=== PATIENT | male | born 1970 | race Asian ===

== ENCOUNTER 2021-07-20 20:36 | Emergency (ER) | payer OTHER, SELFPAY ==
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
[2021-07-20 20:44] VITALS: BP 169/78; PULSE 73; RESP 18; TEMP 37; O2SAT 97; BMI 39.9
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
[2021-07-20 22:11] VITALS: BP 152/86; PULSE 67; RESP 14; TEMP 37; O2SAT 98
--- NOTE | 2021-07-20 22:44 | PC.NURSE ---
throughout ed time, pt was reorientated to keep collar on. Pt is now self removing collar. pt reeducated to keep collar on.
--- NOTE | 2021-07-21 00:26 | PC.NURSE ---
RIGHT ELBOW HAS MODERATE AREA OF [address] [place]. AREA CLEANED WITH HYDROGEN PEROXIDE AND WATER MIXTURE. ANTIBIOTIC OINTMENT PLACED OVER OPEN SKIN, COVERED WITH TELFA AND WRAPPED WITH TARAN.
[2021-07-21] MEDS: traMADoL HCL 50 MG TABLET PO (00:43)
[2021-07-21 02:19] VITALS: BP 149/85; PULSE 70; RESP 16; O2SAT 96
== END 2021-07-21 02:21 | disposition home or self-care (01) ==
PROVIDERS: Emergency Provider Emergency Medicine; PCP Internal Medicine
DX: S50.311A Abrasion of right elbow, initial encounter (principal); T14.8XXA Other injury of unspecified body region, initial encounter; V03.90XA Pedestrian on foot injured in collision with car, pick-up truck or van, unspecified whether traffic or nontraffic accident, initial encounter; Y93.9 Activity, unspecified; Y92.9 Unspecified place or not applicable; Y99.9 Unspecified external cause status
CPT/HCPCS: 70450; 72072; 72125; 73100; 99284

== ENCOUNTER 2022-04-19 20:35 | Emergency (ER) | payer OTHER, SELFPAY ==
--- NOTE | 2022-04-19 20:38 | ECG_ITS ---
Test Reason : dizness Blood Pressure : / mmHG Vent. Rate : 075 BPM Atrial Rate : 075 BPM P-R Int : 146 ms QRS Dur : 092 ms QT Int : 352 ms P-R-T Axes : 013 -16 002 degrees QTc Int : 393 ms Normal sinus rhythm Minimal voltage criteria for LVH, may be normal variant ( R in aVL ) Borderline ECG No previous ECGs available Referred By: Generic ED Physician Electronically Signed By:Keegan House
[2022-04-19 20:40] VITALS: BP 124/59; PULSE 78; RESP 18; TEMP 37; O2SAT 97; BMI 36.0
--- NOTE | 2022-04-19 20:51 | PC.NURSE ---
Pt refusing blood work at this time. Attributing dizziness to cleaning.
== END 2022-04-19 21:17 | disposition left against medical advice (07) ==
PROVIDERS: Emergency Provider Emergency Medicine; PCP Internal Medicine
DX: R42 Dizziness and giddiness (principal); E78.5 Hyperlipidemia, unspecified
CPT/HCPCS: 93005; 99282; 99283

== ENCOUNTER 2022-05-06 08:11 | Outpatient (REF) | payer OTHER, SELFPAY ==
--- NOTE | ~2022-05-06 | XR_ITS ---
EXAMINATION: XR SHOULDER, RIGHT CLINICAL INFORMATION: Pain COMPARISON: None TECHNIQUE: AP external rotation, Grashey, scapular Y, and axillary views of the right shoulder. FINDINGS: There is mild loss of right AC joint with periarticular spurring. No acute fracture or dislocation seen. The soft tissues are normal. XR/XR shoulder RT min 2V IMPRESSION: Mild degenerative changes right AC joint.
== END 2022-05-06 08:12 | disposition home or self-care (01) ==
LOC: HO.HOSX 08:11
PROVIDERS: Visit Provider Physician Assistant
DX: M54.12 Radiculopathy, cervical region (principal)
CPT/HCPCS: 73030; 99202

== ENCOUNTER → 2022-06-19 10:53 | Outpatient (BNVA) | payer OTHER, SELFPAY | PROVIDERS: PCP Internal Medicine; Visit Provider Orthopaedic Surgery | DX: M77.8 Other enthesopathies, not elsewhere classified (principal); R20.0 Anesthesia of skin; R20.2 Paresthesia of skin | CPT/HCPCS: 20550; 99202; J1100 ==

== ENCOUNTER → 2022-07-15 08:58 | Outpatient (BNVA) | payer OTHER, SELFPAY | PROVIDERS: PCP Internal Medicine; Visit Provider Internal Medicine | DX: M47.812 Spondylosis without myelopathy or radiculopathy, cervical region (principal) | CPT/HCPCS: 99202 ==

== ENCOUNTER 2022-12-31 01:47 | Emergency (ER) | payer OTHER, SELFPAY ==
--- NOTE | 2022-12-31 | ECG_ITS ---
Test Reason : SHORTNESS OF BREATH Blood Pressure : / mmHG Vent. Rate : 093 BPM Atrial Rate : 093 BPM P-R Int : 158 ms QRS Dur : 092 ms QT Int : 348 ms P-R-T Axes : 038 -13 028 degrees QTc Int : 432 ms Normal sinus rhythm Minimal voltage criteria for LVH, may be normal variant ( R in aVL ) Borderline ECG When compared with ECG of 19-APR-2022 20:36, No significant change was found Referred By: Generic ED Physician Electronically Signed By:VIKRAM JARA MD
[2022-12-31 01:54] VITALS: BMI 30.1
[2022-12-31 02:24] LABS: Basophils Absolute Auto 0.1 X10*3/uL (0.0-0.2); Basophils Percent Auto 0.6 % (0-2); Eosinophils Absolute Auto 0.9 X10*3/uL (0.0-0.4); Eosinophils Percent Auto 8.3 % (0-4); Hematocrit 40.3 % (42.0-52.0); Hemoglobin 13.3 g/dl (14.0-18.0); Imm Gran Abs Auto 0.09 X10*3/uL (0.00-0.03); Imm Gran Pct Auto 0.8 % (0.0-0.4); Lymphocytes Absolute Auto 3.2 X10*3/uL (1.2-4.9); Lymphocytes Percent Auto 29.7 % (20-40); MANUAL DIFF FLAG NO; Mean Corpuscular Hemoglobin 28.2 pg (27.0-33.0); Mean Corpuscular Volume 85.4 fL (80.0-98.0); Mean Platelet Volume 10.7 fL (9.4-12.4); Monocytes Absolute Auto 0.7 X10*3/uL (0.1-1.2); Monocytes Percent Auto 6.7 % (2-11); Neutrophils Absolute Auto 5.7 x10*3/uL (2.0-8.3); Neutrophils Percent Auto 53.9 % (45-73); Platelet Count 221 X10*3/uL (160-400); Red Blood Count 4.72 X10*6/uL (4.60-5.80); Red Cell Distribution Width 12.6 % (11.0-16.0); White Blood Count 10.6 X10*3/uL (4.8-10.8)
[2022-12-31 02:35] VITALS: BP 128/68; PULSE 79; RESP 16; O2SAT 95
[2022-12-31 02:44] LABS: Alanine Aminotransferase 25 U/L (0-40); Albumin Level 4.1 g/dL (3.5-5.0); Alkaline Phosphatase 103 U/L (39-117); Anion Gap 16 (12-20); Aspartate Amino Transferase 19 U/L (5-37); Bilirubin Total 0.2 mg/dL (0.0-1.0); Blood Urea Nitrogen 17 mg/dL (9-16); Calcium 9.2 mg/dL (8.4-10.2); Carbon Dioxide 23 mmol/L (22-29); Chloride 105 mmol/L (96-108); Creatinine Clr Calc Pharmacy 97.8; Estimated Glomerular Filt Rate > 60; Glucose Random 214 mg/dL (60-115); Potassium 3.7 mmol/L (3.3-5.1); Sodium 140 mmol/L (135-145); Total Protein 6.9 g/dL (6.5-8.0)
[2022-12-31 02:52] LABS: Troponin-I High Sensitivity < 3.5 ng/L (<3.5-35.0)
[2022-12-31 05:18] VITALS: BP 130/61; PULSE 81; RESP 20; O2SAT 97
--- NOTE | 2022-12-31 07:03 | ED_ITS ---
HPI - SOB/Dyspnea General Chief Complaint: Dyspnea Stated Complaint: SOB,99% RA,FULL SENTENCES PER EMS Time Seen by Provider: 12/31/22 06:24 Source: patient Mode of arrival: EMS Limitations: no limitations History of Present Illness HPI Narrative: 52-year-old male who presented to the emergency department for evaluation of shortness of breath. The patient states that he was with a friend and he ate a marijuana gummy. The patient states he did not know that the gummy had marijuana in it. He states that he ate the marijuana edible around 23:00 hours. He then went home he states that he is having difficulty falling asleep. He states he felt very anxious. States that if he fell asleep he was afraid he was not going to wake up again. Patient started to feel short of breath therefore he called an ambulance and was brought to emergency department for evaluation. Patient states several days ago he did have a episode of shaking chills and rhinorrhea. Currently denies chest pain, shortness of breath, nausea, vomiting, diarrhea, weakness. Related Data Home Medications Medication Instructions Recorded Confirmed apremilast 30 mg tablet (Otezla) 30 mg PO BID 06/19/22 07/15/22 loratadine 10 mg tablet 10 mg PO DAILY PRN 07/15/22 07/15/22 (Allerclear) Allergies Allergy/AdvReac Type Severity Reaction Status Date / Time No Known Allergies Allergy Verified 07/15/22 09:06 Review of Systems Review of Systems: Yes all other systems are reviewed and are negative [facility] Past Medical History [facility] Narrative: Past medical history: Hyperlipidemia. Social history: He denies tobacco use. Occasionally drinks alcohol. He states that he does not use drugs any never uses marijuana. Medical History (Updated 12/31/22 @ 07:17 by Lei Barrera MD) High cholesterol Psoriasis Surgical History No pertinent past surgical history Social History Social History Alcohol intake: current Alcohol intake frequency: a few times a week Smoked in Last 30 Days: No Use of substances other than those prescribed or required for medical reasons: No Advance Directives: No Advance Directives Information Provided: Yes Physical Exam Vital Signs: Vital Signs: Last Vital Signs Pulse 81 12/31/22 05:18 Resp 20 12/31/22 05:18 BP 130/61 12/31/22 05:18 Pulse Ox 97 12/31/22 05:18 O2 Del Method 12/31/22 05:18 BMI result Body Mass Index 30.1 Const: General: cooperative and no acute distress Orientation/consciousness: oriented to person and oriented to place Limitations: no limitations HEENT: Head: Yes normal to inspection, Yes normocephalic and Yes atraumatic Ears: external ears normal General nose exam: Normal external nose present Face and sinus: Yes normal facial exam Mouth: Normal oral and palatal mucosa present Throat: Yes posterior oropharynx normal Eyes: General: appearance normal, both eyes and all related structures Pupils: Equal, round and reactive pupils present Neck: Neck: Yes normal visual inspection, Yes no lymphadenopathy, Yes trachea midline and Yes supple Chest: Chest palpation & inspection: normal inspection of the chest and normal palpation of entire chest wall Resp: Effort & Inspection: normal respiratory effort and able to speak in complete sentences Auscultation: clear to auscultation bilaterally Cardio: Rate: regular rate Rhythm: regular rhythm Heart sounds: S1 normal heart sound present, S2 normal heart sound present and no murmurs GI: Inspection: Yes normal to inspection Palpation (GI): Soft to palpation, nontender and no guarding Auscultation: normal bowel sounds : General: Yes no CVA tenderness Back/Spine/Pelvis: Back: no CVA tenderness Skin: General skin exam: no rashes or lesions noted Neuro: General: oriented to person and oriented to place Cranial nerves: Yes CN's II-XII intact bilaterally and Yes Equal, round and reactive pupils present Cognition (Neuro): normal cognition Motor exam (neuro): 5/5 motor strength present throughout Extrem: General: Yes normal to inspection Psych: Appearance: grossly normal Speech and movement: Normal speech and mo vement present Affect: normal affect Attitude: cooperative Thought process: Normal thought process present Thought content: Normal thought content present Medical Decision Making Medical Decision Making MDM Narrative: 52-year-old male who presents emergency department for evaluation of shortness of breath and paranoid ideation which occurred after he ate an edible marijuana gummy. The patient's vital signs were normal. Patient's physical examination was unremarkable. At the time my evaluation the patient is feeling back to normal and states that he is just feeling tired at this time. Patient had a laboratory evaluation that included a CBC, CMP and troponin. Patient's glucose was elevated at 214. The patient's high sensitive troponin I was below detectable limits. Patient's 12 EKG was unremarkable. The patient was discharged home. Differential Diagnosis Differential diagnosis includes but is not limited to myocardial infarction, pn eumonia, congestive heart failure, anemia, THC induced paranoia. Lab Data [facility] Lab Attestation statement: I reviewed the patient's lab results. Please see [facility] for discussion 12/31/22 02:19 12/31/22 02:19 Labs: Lab Results 12/31/22 12/31/22 12/31/22 Range/Units 02:19 02:19 02:19 WBC 10.6 (4.8-10.8) X10*3/uL RBC 4.72 (4.60-5.80) X10*6/uL Hgb 13.3 L (14.0-18.0) g/dl Hct 40.3 L (42.0-52.0) % MCV 85.4 (80.0-98.0) fL MCH 28.2 (27.0-33.0) pg MCHC 33.0 (31.0-36.0) g/dl RDW 12.6 (11.0-16.0) % Plt Count 221 (160-400) X10*3/uL MPV 10.7 (9.4-12.4) fL Immature Gran % (Auto) 0.8 H (0.0-0.4) % Neut % (Auto) 53.9 (45-73) % Lymph % (Auto) 29.7 (20-40) % [place] % (Auto) 6.7 (2-11) % Eos % (Auto) 8.3 H (0-4) % Baso % (Auto) 0.6 (0-2) % Lymph # (Auto) 3.2 (1.2-4.9) X10*3/uL [place] # (Auto) 0.7 (0.1-1.2) X10*3/uL Eos # (Auto) 0.9 H (0.0-0.4) X10*3/uL Baso # (Auto) 0.1 (0.0-0.2) X10*3/uL Abs Immat Gran (auto) 0.09 H (0.00-0.03) X10*3/uL Absolute Neuts (auto) 5.7 (2.0-8.3) x10*3/uL Absolute Nucleated RBC 0.000 (0.0-0.012) X10*3/uL Nucleated RBC % (auto) 0.0 (0.0-0.2) /100WBC Sodium 140 (135-145) mmol/L Potassium 3.7 (3.3-5.1) mmol/L Chloride 105 (96-108) mmol/L Carbon Dioxide 23 (22-29) mmol/L Anion Gap 16 (12-20) BUN 17 H (9-16) mg/dL Creatinine 1.00 (0.5-1.4) mg/dL Estim Creat Clear Calc 97.8 Estimated GFR > 60 Random Glucose 214 H (60-115) mg/dL Calcium 9.2 (8.4-10.2) mg/dL Total Bilirubin 0.2 (0.0-1.0) mg/dL AST 19 (5-37) U/L ALT 25 (0-40) U/L Alkaline Phosphatase 103 (39-117) U/L Troponin I High Sens < 3.5 (<3.5-35.0) ng/L Total Protein 6.9 (6.5-8.0) g/dL Albumin 4.1 (3.5-5.0) g/dL Independent Interpretation I performed an independent interpretation of an: EKG Interpretation: My independent interpretation of the patient's 12 EKG done at 02:10 hours is as follows: Normal sinus rhythm with a rate of 93, normal DC interval, QRS duration QTC interval, no ST segment elevation, no ST segment depression this is a normal EKG. Discharge Plan Discharge Clinical Impression: Panic attack Adverse effect of cannabis Qualifiers: Encounter type: initial encounter Qualified Code(s): T40.715A - Adverse effect of cannabis, initial encounter Patient Disposition: Home, Self-Care Instructions: Panic Attack (ED) Additional Instructions: Your blood work was normal. Your 12 EKG was normal. Your symptoms were caused by the marijuana edible that you ingested. Marijuana can sometimes make you paranoid and give you a panic attack. Follow-up with your doctor in 2 days. Please return to the emergency department if your symptoms get worse or if you develop any symptoms that are concerning to you. Prescriptions: No Action Otezla 30 mg tablet 30 mg PO BID loratadine [Allerclear] 10 mg tablet 10 mg PO DAILY PRN
[2022-12-31 07:42] VITALS: BP 123/66; PULSE 85; RESP 18; TEMP 36.7
== END 2022-12-31 07:48 | disposition home or self-care (01) ==
PROVIDERS: Emergency Provider Emergency Medicine Emergency Medical Services; PCP Internal Medicine
DX: F41.0 Panic disorder [episodic paroxysmal anxiety] (principal); R06.02 Shortness of breath; F12.90 Cannabis use, unspecified, uncomplicated; R94.31 Abnormal electrocardiogram [ECG] [EKG]; Z79.899 Other long term (current) drug therapy
CPT/HCPCS: 36415; 80053; 84484; 85025; 93005; 99283; 99284

== ENCOUNTER 2024-01-13 08:51 | Outpatient (REF) | payer OTHER, SELFPAY ==
[2024-01-13 09:12] LABS: MANUAL DIFF FLAG NO
[2024-01-13 10:04] LABS: Basophils Absolute Auto 0.1 X10*3/uL (0.0-0.2); Basophils Percent Auto 0.8 % (0-2); Eosinophils Absolute Auto 0.5 X10*3/uL (0.0-0.4); Eosinophils Percent Auto 5.2 % (0-4); Hematocrit 40.6 % (42.0-52.0); Hemoglobin 13.7 g/dl (14.0-18.0); Imm Gran Abs Auto 0.05 X10*3/uL (0.00-0.03); Imm Gran Pct Auto 0.6 % (0.0-0.4); Lymphocytes Absolute Auto 2.8 X10*3/uL (1.2-4.9); Mean Corpuscular HGB Conc 33.7 g/dl (31.0-36.0); Mean Corpuscular Hemoglobin 29.2 pg (27.0-33.0); Mean Corpuscular Volume 86.6 fL (80.0-98.0); Mean Platelet Volume 10.8 fL (9.4-12.4); Monocytes Absolute Auto 0.8 X10*3/uL (0.1-1.2); Monocytes Percent Auto 8.9 % (2-11); Neutrophils Absolute Auto 4.8 x10*3/uL (2.0-8.3); Neutrophils Percent Auto 53.5 % (45-73); Platelet Count 238 X10*3/uL (160-400); Red Blood Count 4.69 X10*6/uL (4.60-5.80); Red Cell Distribution Width 12.5 % (11.0-16.0)
[2024-01-13 10:50] LABS: Alanine Aminotransferase 26 U/L (0-40); Albumin Level 4.1 g/dL (3.5-5.0); Alkaline Phosphatase 84 U/L (39-117); Anion Gap 11 (12-20); Aspartate Amino Transferase 21 U/L (5-37); Bilirubin Direct 0.1 mg/dL (0.0-0.5); Bilirubin Total 0.4 mg/dL (0.0-1.0); Blood Urea Nitrogen 14 mg/dL (9-16); Calcium 9.1 mg/dL (8.4-10.2); Carbon Dioxide 28 mmol/L (22-29); Chloride 105 mmol/L (96-108); Cholesterol 210 mg/dL (<200); Estimated Glomerular Filt Rate > 60; Glucose Random 108 mg/dL (60-115); HDL Cholesterol 49 mg/dL (>40); LDL Cholesterol Calculated 142 mg/dL (<100); Potassium 3.7 mmol/L (3.3-5.1); Sodium 140 mmol/L (135-145); Total Protein 7.5 g/dL (6.5-8.0); Triglycerides 96 mg/dL (<150)
[2024-01-13 11:56] LABS: HBS Num1 3.39 mIU/mL (0-7.99); HBsAGNum1 0.33 S/CO (0.00-0.99); Hepatitis B Core Antibody Nonreactive (Nonreactive); Hepatitis B Surface Antigen Negative (Negative); ~HepC Num1 0.08 S/CO (0.00-0.79); ~Hepatitis B Surface Antibody NONREACTIVE (Nonreactive); ~Hepatitis C Antibody Nonreactive (Nonreactive)
[2024-01-13 12:09] LABS: Reflex LDLD? No
[2024-01-16 08:04] LABS: TS Negative Control Passed; TS Panel A 0; TS Panel B 0; TS Positive Control Passed; TSpotTB Negative (Negative)
== END 2024-01-13 08:52 | disposition home or self-care (01) ==
LOC: HO.LAB 08:51
PROVIDERS: PCP Internal Medicine; Visit Provider Physician Assistant Medical
DX: L40.0 Psoriasis vulgaris (principal)
CPT/HCPCS: 36415; 80048; 80061; 80076; 85025; 86481; 86704; 86706; 86803; 87340

== ENCOUNTER 2024-09-22 10:55 | Emergency (ER) | payer OTHER, SELFPAY ==
--- NOTE | ~2024-09-22 | XR_ITS ---
EXAMINATION: XR HAND/WRIST, LEFT CLINICAL INFORMATION: Fall. Distal radial pain. COMPARISON: Left wrist radiographs dated 07/31/2021. TECHNIQUE: PA, lateral, oblique, and scaphoid views of the left hand and wrist. FINDINGS: The bones and soft tissues are normal. No fracture. Alignment is anatomic. Joint spaces are maintained. No erosions or soft tissue calcifications. XR/XR hand wrist LT IMPRESSION: Unremarkable examination. Electronically signed by: Atul Holder MD 09/22/2024 02:13 PM [facility]
--- NOTE | ~2024-09-22 | CT_ITS ---
EXAMINATION: CT HEAD WITHOUT CONTRAST CT CERVICAL SPINE WITHOUT CONTRAST CLINICAL INFORMATION: Fall. Head strike. COMPARISON: CT head and cervical spine from 07/20/2021. TECHNIQUE: Contiguous axial imaging was performed from the upper chest through the skull base without intravenous administration of contrast. Coronal and sagittal reformats were obtained at the acquisition workstation. This CT examination was performed using dose optimization techniques as appropriate, variously including the following: *Automated exposure control. *Adjustment of mA and/or kV according to patient size (this includes techniques or standardized protocols for targeted exams where dose is matched to indication/reason for exam; i.e. extremities or head). *Use of iterative reconstruction technique. DLP: 723 mGy-cm FINDINGS: The atlantooccipital and atlantoaxial articulations remain well aligned. Moderate degenerative arthropathy of the atlantodental articulation. Straightening of the normal cervical lordosis. Otherwise, there is anatomic alignment of the vertebral bodies and posterior elements. No evidence of acute fracture or subluxation. The vertebral body heights are maintained. Moderate degenerative disc disease from C7-T2. Exuberant bridging anterior osteophytosis from C4-T2. 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 There appear to be at least moderate spinal canal stenosis at C5 and C6. Facet and uncovertebral joint arthropathy leads to osseous encroachment on the neural foramina from C3-C6. There is no prevertebral soft tissue swelling. The thyroid gland and remaining cervical soft tissues are within normal limits. The lung apices demonstrate no abnormalities. CT/CT cervical spine wo IV con IMPRESSION: 1. No evidence of acute fracture or traumatic subluxation of the cervical spine. 2. Moderate multilevel degenerative spondyloarthropathy of the cervical spine. Exuberant anterior osteophytosis from C4-T2. 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 There appear to be at least moderate spinal canal stenosis at C5 and C6. Osseous encroachment on the neural foramina from C3-C6. Electronically signed by: Suman Devries DO 09/22/2024 03:23 PM [facility]
--- NOTE | ~2024-09-22 | CT_ITS ---
EXAMINATION: CT HEAD WITHOUT CONTRAST CLINICAL INFORMATION: Fall with head strike COMPARISON: 07/20/2021 TECHNIQUE: Contiguous axial imaging was performed from the skull base to vertex without intravenous administration of contrast. This CT examination was performed using dose optimization techniques as appropriate, variously including the following: *Automated exposure control *Adjustment of mA and/or kV according to patient size (this includes techniques or standardized protocols for targeted exams where dose is matched to indication/reason for exam; i.e. extremities or head) *Use of iterative reconstruction technique DLP: 702 mGy-cm FINDINGS: The ventricles and sulci are normal in size and configuration. No acute hemorrhage, mass effect or shift is evident. Hoover-white differentiation is maintained. In the posterior fossa, the brainstem, cerebellum and fourth ventricle image normally. The orbits and calvarium are intact. The paranasal sinuses and mastoid air cells are well pneumatized and clear. CT/CT head/brain wo IV con IMPRESSION: 1. Unremarkable noncontrast brain CT. No acute hemorrhage, mass effect or shift. Electronically signed by: Carmine Fink MD 09/22/2024 02:01 PM [facility]
--- NOTE | ~2024-09-22 | XR_ITS ---
EXAMINATION: XR LUMBOSACRAL SPINE CLINICAL INFORMATION: Fall. Pain. COMPARISON: None available. TECHNIQUE: Three views of the lumbosacral spine. FINDINGS: Normal vertebral body alignment. The lumbar lordosis is maintained. No acute fracture or subluxation. No loss of vertebral body. Multilevel loss of intervertebral disc with anterior endplate osteophytes, most prominent at L5-S1. Bilateral facet arthropathy at L4-S1. No concerning lytic or blastic osseous lesion. No abnormal soft tissue calcification. XR/XR lumbar spine 2-3V IMPRESSION: Multilevel degenerative disc disease, most prominent at L5-S1. Bilateral facet arthropathy at L4-S1. Electronically signed by: Atul Holder MD 09/22/2024 02:22 PM [facility]
--- NOTE | ~2024-09-22 | XR_ITS ---
EXAMINATION: XR SHOULDER, LEFT CLINICAL INFORMATION: Fall. Pain. COMPARISON: None available. TECHNIQUE: AP external rotation, Grashey, scapular Y, and axillary views of the left shoulder. FINDINGS: No acute fracture or dislocation. Tiny acromioclavicular marginal osteophytes. No glenohumeral joint space narrowing. Small posterior glenoid marginal osteophytes. No osseous erosion. No abnormal soft tissue calcification. XR/XR shoulder LT min 2V IMPRESSION: 1. No acute fracture or dislocation. 2. Mild acromioclavicular and glenohumeral osteoarthritis. Electronically signed by: Atul Holder MD 09/22/2024 02:22 PM EST
[2024-09-22 11:51] VITALS: BP 171/80; PULSE 74; RESP 18; TEMP 37.1; O2SAT 97; BMI 38.8
--- NOTE | 2024-09-22 11:51 | ED_ITS ---
HPI - General Adult General Chief complaint: Fall Stated complaint: fall @ work, arm and shoulder pain Time Seen by Provider: 09/22/24 17:11 Source: patient Mode of arrival: ambulatory Limitations: no limitations History of Present Illness ED Provider: Sinan [facility] narrative: Patient is a 53-year-old male with history of psoriasis, high cholesterol, cervical spondylosis presenting to the emergency department with complaint of neck, left shoulder, left wrist, and lower back pain since 07/29. He reports that on 07/29 he was sitting in a chair when the chair slipped causing him to fall backwards, hitting his head on the seat and causing his neck to flex forward. He was not evaluated immediately after the fall. Reports that over the last 4 to 5 days, the pain his worsened. He does not remember if he experienced loss of consciousness, is not anticoagulated. Denies paresthesias to left arm. Denies radiation of back pain to lower extremities. Denies saddle anesthesia or bowel or bladder incontinence. Denies fevers. complaint: neck, arm and back pain Onset (ago): month(s) Related Data Home Medications ?Medication ?Instructions ?Recorded ?Confirmed apremilast 30 mg tablet (Otezla) 30 mg PO BID 06/19/22 07/15/22 loratadine 10 mg tablet 10 mg PO DAILY PRN 07/15/22 07/15/22 (Allerclear) Previous Rx's ?Medication ?Instructions ?Recorded lidocaine 5 % topical patch 1 patch topical DAILY #15 ea 09/22/24 naproxen 500 mg tablet 500 mg PO BID #30 tabs 09/22/24 Allergies Allergy/AdvReac Type Severity Reaction Status Date / Time No Known Allergies Allergy Verified 09/22/24 11:54 Review of Systems Review of Systems: As per HPI. Yes all other systems are reviewed and are negative Constitutional: Constitutional: Reports as per HPI [facility] Past Medical History Medical History (Updated 09/22/24 @ 17:50 by Annalise Menon NP) Psoriasis High cholesterol Surgical History No pertinent past surgical history Social History Social History Alcohol intake: current Alcohol intake frequency: a few times a week Advance Directives: No Advance Directives Information Provided: No Physical Exam ED Vital Signs: Vital Signs - 24 hr 09/22/24 11:51 Temperature 98.8 F Pulse Rate 74 Respiratory Rate 18 Blood Pressure 171/80 H Pulse Oximetry 97 Oxygen Delivery Method Room Air BMI result Body Mass Index 38.8 Vital signs have been reviewed and appear to be correct. Blood pressure elevated. Heart rate normal. Respiratory rate normal. Temperature normal. Oxygen saturation normal. Const General: cooperative, healthy appearing and no acute distress Orientation/consciousness: oriented to person, oriented to place, oriented to time and patient oriented x3 Limitations: no limitations [facility] Head: Yes normocephalic, Yes atraumatic, No Motta's sign and No periorbital ecchymosis Ears: external ears normal and TM's normal bilaterally General nose exam: Normal external nose present Face and sinus: Yes face symmetric Mouth: oropharynx normal and moist mucous membranes Throat: Yes uvula midline Eyes General: appearance normal, both eyes and all related structures Pupils: Equal, round and reactive pupils present EOM: EOMs intact bilaterally Neck Neck: Yes normal visual inspection, Yes full ROM, Yes no meningeal signs, Yes trachea midline and Yes supple Chest Chest palpation & inspection: normal inspection of the chest and normal palpation of entire chest wall Resp Effort & Inspection: normal respiratory effort and able to speak in complete sentences Auscultation: clear to auscultation bilaterally Cardio Rate: regular rate Rhythm: regular rhythm Heart sounds: S1 normal heart sound present and S2 normal heart sound present GI Palpation (GI): Soft to palpation and nontender Auscultation: normoactive bowel sounds General: Yes no CVA tenderness Back/Spine/Pelvis Back: no CVA tenderness Cervical Spine: normal cervical lordosis, cervical ROM normal, cervical muscular tenderness (left lateral), pain with cervical ROM, Cervical spine tenderness and No step off deformity Thoracic/Lumbar Spine: thoracic and lumbar spine normal to inspection, thoraco- lumbar ROM normal, straight leg raise negative bilaterally, pain with thoraco- lumbar ROM, paraspinal muscle tenderness bilaterally in the upper lumbar, in the mid lumbar and in the lower lumbar, No thoracic spinal tenderness and No lumbar spinal tenderness Skin General skin exam: elasticity normal and turgor normal Neuro General: oriented to person, oriented to place, oriented to time, patient oriented x3, moves all extremities, no meningeal signs, no focal motor deficits and CN's II-XI intact bilaterally Cranial nerves: Yes Equal, round and reactive pupils present Cognition (Neuro): normal cognition Extrem General: Yes full ROM, Yes no pedal edema and Yes no calf tenderness Psych Mental Status: mental status grossly normal Affect: normal affect Thought process: Normal thought process present Course Course Course Narrative: This is a rapid medical exam performed by Santa Menon NP: Additional HPI, ROS, PE not included below will be deferred to primary provider. Patient is a 53-year-old male presenting to the emergency department with complaint of neck, left shoulder, and left arm pain. Fall on 07/29, states chair slipped and he fell backward, hitting his head and neck on the seat. No pain initially, then slowly developed pain. Not anticoagulated. Plan: imaging Medical Decision Making Medical Decision Making MDM Narrative: Patient is a 53-year-old male with history of psoriasis, high cholesterol, cervical spondylosis presenting to the emergency department with complaint of neck, left shoulder, left wrist, and lower back pain since 07/29. On exam patient is awake, A+Ox3, VS WNL, afebrile, normal neurological exam without focal deficits, physical exam findings as above. Given reported symptoms and physical exam findings, initial differential includes cervical strain, degenerative disease, lumbar strain, lumbar radiculopathy, degenerative disc disease, disc herniation, spinal stenosis, spondylosis, left shoulder strain versus fracture, left wrist strain, sprain, fracture. Do not suspect malignancy/mass, SEA, cauda equina/cord compression. CT head and c-spine notable for no evidence of acute fracture or subluxation, moderate multilevel degenerative spondyloarthropathy, no evidence of ICH, skull fracture. Xrays of shoulder, wrist normal. Lumbar xray notable for degenerative disc disease. My interpretation is in agreement with the radiologist's interpretation. Review of EMR notable for prior diagnosis of cervical spondylosis for which patient saw pain management. When results of today's imaging discussed with patient, he was unaware of this diagnosis. Advised patient to follow up with PCP as well as pain management. Will send prescriptions for naproxen and lidocaine patches. Patient provided with BUD wrap for left wrist. Return precautions discussed at bedside. Patient verbalized understanding of and agreement with plan. Differential Diagnosis Differential Diagnoses: The differential diagnosis associated with the presentation includes As per MDM. Admission/Observation Consideration of admission/observation: Escalation of care including admission/observation considered Patient would have been admitted to the hospital had their work up had any findings where hospital admission was appropriate and their clinical presentation warranted hospital admission. Independent Interpretation I performed an independent interpretation of an: Plain X-Ray and CT Scan Interpretation: CT head and c-spine notable for no evidence of acute fracture or subluxation, moderate multilevel degenerative spondyloarthropathy, no evidence of ICH, skull fracture. Xrays of shoulder, wrist normal. Lumbar xray notable for degenerative disc disease. Radiology Impression Discussion of test interpretation with radiology: I have reviewed the radiologist's reading. Radiologist Impression: CT/CT cervical spine wo IV con IMPRESSION: 1. No evidence of acute fracture or traumatic subluxation of the cervical spine. 2. Moderate multilevel degenerative spondyloarthropathy of the cervical spine. Exuberant anterior osteophytosis from C4-T2. 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 There appear to be at least moderate spinal canal stenosis at C5 and C6. Osseous encroachment on the neural foramina from C3-C6. CT/CT head/brain wo IV con IMPRESSION: 1. Unremarkable noncontrast brain CT. No acute hemorrhage, mass effect or shift. XR/XR lumbar spine 2-3V IMPRESSION: Multilevel degenerative disc disease, most prominent at L5-S1. Bilateral facet arthropathy at L4-S1. XR/XR shoulder LT min 2V IMPRESSION: 1. No acute fracture or dislocation. 2. Mild acromioclavicular and glenohumeral osteoarthritis. XR/XR hand wrist LT IMPRESSION: Unremarkable examination. External Record Review External record reviewed: Inpatient record, Office record and Outpatient record Prescription Management I considered prescription management with: Pain Medication Discharge Plan Discharge Clinical Impression: Cervical spondylosis, Degenerative disc disease, lumbar, Muscle strain of left wrist Patient Disposition: Home, Self-Care Instructions: Wrist Injury (ED), Osteoarthritis (DC), Degenerative Disc Disease (ED), Chronic Neck Pain (DC) Additional Instructions: You were evaluated in the emergency department today for injuries sustained during a fall in July. Your imaging did not show evidence of any acute injuries. You do have significant arthritis in your neck and lower back. You can purchase an over the counter brace for your wrist to use at work. You are being prescribed naproxen to decrease inflammation as well as topical lidocaine patches which you can apply to affected areas for up to 12 hours at a time in a 24 hour period. Do not apply heat directly over the patches. We recommend that you follow up with your primary care provider as well as pain management. Return to the emergency department with any new or concerning symptoms. Prescriptions: New naproxen 500 mg tablet 500 mg PO BID Qty: 30 0RF lidocaine 5 % adhesive patch,medicated 1 patch topical DAILY Qty: 15 0RF Rx Instructions: leave on most painful area for up to 12 hrs No Action Otezla 30 mg tablet 30 mg PO BID loratadine [Allerclear] 10 mg tablet 10 mg PO DAILY PRN Referrals: Carlos Leslie MD [Physician] - Stand Alone Forms: Work/School Release Print Language: Josseline
[2024-09-22 17:58] VITALS: BP 171/80; PULSE 74; RESP 18; TEMP 37.1; O2SAT 97
== END 2024-09-22 17:59 | disposition home or self-care (01) ==
PROVIDERS: Emergency Provider Internal Medicine; PCP Internal Medicine
DX: M47.022 Vertebral artery compression syndromes, cervical region (principal); M51.369 Other intervertebral disc degeneration, lumbar region without mention of lumbar back pain or lower extremity pain; S66.912A Strain of unspecified muscle, fascia and tendon at wrist and hand level, left hand, initial encounter; W07.XXXA Fall from chair, initial encounter; Y93.89 Activity, other specified; Y92.511 Restaurant or cafe as the place of occurrence of the external cause; Y99.0 Civilian activity done for income or pay
CPT/HCPCS: 70450; 72100; 72125; 73030; 73110; 73130; 99282; 99284

== ENCOUNTER 2024-10-20 09:39 | Outpatient (AMB) | payer OTHER, SELFPAY ==
--- NOTE | 2024-10-20 09:45 | A.OFFVIS_ITS ---
Vital Signs 10/20/24 09:46 Height 5 ft 8 in Weight 254 lb BMI 38.6 BP 143/73 H Blood Pressure Location Lt brachial Position Sitting Respiration 16 Pulse 91 Pulse Source Pulse Oximeter Pulse Oximetry (%) 96 Oxygen Delivery Method Room Air Intake Visit Reasons: [facility] SPECIALIST ED REF FOR ARM AND SHOULDER PAIN Allergies No Known Allergies Allergy (Verified 10/20/24 09:47) Medication List - Last Reconciled 10/20/24 by Pau Soler LPN apremilast (Otezla) 30 mg PO BID loratadine (Allerclear) 10 mg PO DAILY PRN HPI HPI [facility] SPECIALIST ED REF FOR ARM AND SHOULDER PAIN: Details: 53-year-old male presenting for follow-up after recent fall at work. 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 He hit his side against a freezer, his neck was twisted laterally and he landed on his left wrist. Since then he has had worsening neck and low back pain. He feels he has to limp to walk. He denies any radiation down the legs. He has not been for any recent formal physical therapy for neck or low back but has been continuing home exercises for his neck pain that has been a pre-existing problem. He had a CT in the ER which was negative for any acute fractures but did show multilevel anterior osteophytosis. He also has been having significant left wrist and hand discomfort. 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 On exam today: Appears afebrile. Alert and oriented. Mood and affect appropriate. Follows and participates in conversation appropriately. Respiratory effort is unlabored. Able to transition from sit to stand unassisted. Ambulates with bilaterally normal heel strike and toe off. Able to stand and walk on toes and heels. Tenderness overlying the left metacarpals as well as left distal forearm. Slightly antalgic gait on observation. [facility] Medical History (Updated 10/20/24 @ 10:06 by Jarett Alvarenga MD) Psoriasis High cholesterol Surgical History No pertinent past surgical history Social History Alcohol intake: current Alcohol intake frequency: a few times a week Physical Exam Vital Signs: Last Vital Signs Pulse 91 10/20/24 09:46 Resp 16 10/20/24 09:46 BP 143/73 H 10/20/24 09:46 Pulse Ox 96 10/20/24 09:46 Oxygen Delivery Method Room Air 10/20/24 09:46 BMI result Body Mass Index 38.6 Assessment & Plan Assessment & Plan (1) Low back pain: Code(s): M54.50 - Low back pain, unspecified Category: Medical (2) Cervical spondylosis: Code(s): M47.812 - Spondylosis without myelopathy or radiculopathy, cervical region Category: Medical (3) Cervical radicular pain: Code(s): M54.12 - Radiculopathy, cervical region Category: Medical (4) Left wrist tendinitis: Code(s): M77.8 - Other enthesopathies, not elsewhere classified Category: Medical Plan Recommend trial of physical therapy for neck pain secondary to cervical spondylosis, osteophytosis and possible hyperostosis. Also recommend physical therapy for low back pain. Lumbar spine x-rays notable for degenerative disc and facet disease, most pronounced at L5-S1. He will return to clinic in 2 months after physical therapy for these issues and we can consider cervical and lumbar spine MRIs at that time if her symptoms have not improved. For his left hand and wrist issue, I have placed a referral to occupational therapy. Patient is in agreement with the plan Orders: Orders PT Evaluation and Treatment Today M47.812 - Spondylosis without myelopathy or radiculopathy, cervical region, M54.12 - Radiculopathy, cervical region, M54.50 - Low back pain, unspecified OT Evaluation and Treatment Today M77.8 - Other enthesopathies, not elsewhere classified Coding Level of Care Code Est Pt Level 4 (14499) Diagnoses Low back pain M54.50 Cervical spondylosis M47.812 Cervical radicular pain M54.12 Left wrist tendinitis M77.8
[2024-10-20 09:46] VITALS: BP 143/73; PULSE 91; RESP 16; O2SAT 96; BMI 38.6
== END 2024-10-20 10:01 | disposition home or self-care (01) ==
PROVIDERS: PCP Internal Medicine; Visit Provider Internal Medicine
DX: M54.50 Low back pain, unspecified (principal); M47.812 Spondylosis without myelopathy or radiculopathy, cervical region; M54.12 Radiculopathy, cervical region; M77.8 Other enthesopathies, not elsewhere classified
CPT/HCPCS: 99214

== ENCOUNTER → 2024-10-20 09:39 | Outpatient (BNVA) | payer OTHER, SELFPAY | PROVIDERS: PCP Internal Medicine; Visit Provider Internal Medicine | DX: M54.50 Low back pain, unspecified (principal); M47.22 Other spondylosis with radiculopathy, cervical region; M77.8 Other enthesopathies, not elsewhere classified | CPT/HCPCS: 99212 ==